=== PATIENT | female | born 1975 | race Caucasian/White ===

== ENCOUNTER 2018-02-19 22:23 | Emergency (ER) | payer OTHER ==
[2018-02-19 22:29] VITALS: BP 152/85; PULSE 89; TEMP 98; BMI 28.3
[2018-02-19] MEDS ORDERED: DIPHTH,PERTUSS(ACELL),TET 0.5 ML DISP.SYRIN IM ONE (22:36)
[2018-02-19] MEDS ORDERED: SILVER SULFADIAZINE 1% TOP CREAM 50 GM JAR TP ONE (22:37)
--- NOTE | 2018-02-19 22:39 | PDOC ---
History of Present Illness - General Chief Complaint: Burn Stated Complaint: BURN Time Seen by Provider: 02/19/18 22:36 History Source: Patient Exam Limitations: No Limitations - History of Present Illness Initial Comments: 02/19/18 22:37 42 yr female with burn to the hand on hot water while cooking at home tonight. no pmhx, pt has ice pack applied. 02/20/18 14:57 Past History - Past Medical History Allergies/Adverse Reactions: Allergies Allergy/AdvReac Type Severity Reaction Status Date / Time No Known Allergies Allergy Verified 02/19/18 22:29 Home Medications: Ambulatory Orders Naproxen [Naprosyn -] 500 mg PO BID 02/19/18 Asthma: Yes Cardiac Disorders: Yes (MURMUR) - Suicide/Smoking/Psychosocial Hx Smoking History: Never smoked Have you smoked in the past 12 months: No Information on smoking cessation initiated: No Hx Alcohol Use: No Drug/Substance Use Hx: No Substance Use Type: None *Physical Exam - Vital Signs Last Vital Signs Temp Pulse Resp BP Pulse Ox 98.0 F 89 16 152/85 100 02/19/18 22:28 02/19/18 22:28 02/19/18 22:28 02/19/18 22:28 02/19/18 22:28 - Physical Exam General Appearance: Yes: Nourished, Appropriately Dressed HEENT: positive: EOMI, ANA Extremity: positive: Normal Capillary Refill, Normal Range of Motion, Other ( left 5th,4th,3rd digits with superficial sepulveda to the distal phalynx, mild blistering noted no swelling, FROM ) Integumentary: positive: Normal Color, Dry, Warm Procedures - Laceration/Wound Repair Left Distal 5th digit Wound Explored: clean Irrigated w/ Saline: Yes Sterile Dressing Applied: Yes (silvadene applied to left 3,4,5th digits , sterile wrap placed ) Medical Decision Making - Medical Decision Making 02/19/18 22:49 second degree superficial sepulveda to the left 3,4,5th digits on boiling water at home while cooking tetanus updated silvadene cream and sterile dressing placed burn care instructions discussed *DC/Admit/Observation/Transfer Diagnosis at time of Disposition: Burn - Discharge Dispostion Disposition: HOME Condition at time of disposition: Good - Referrals Referrals: Domi Henderson MD [Primary Care Provider] - - Patient Instructions Printed Discharge Instructions: DI for Sepulveda Additional Instructions: cool water to the area of burn apply silvadene twice a day to the area and cover, repeat for at least 4-5 days until healed take ibuprofen 600-800mg every 8hrs for pain follow with your primary care doctor in 2-3 days for wound check - Post Discharge Activity
[2018-02-19] MEDS ORDERED: SILVER SULFADIAZINE 1% TOP CREAM 50 GM JAR TP STA (22:53)
[2018-02-20] MEDS ORDERED: SILVER SULFADIAZINE 1% TOP CREAM 400 GM JAR TP SCH (10:00)
== END 2018-02-19 22:58 | disposition home or self-care (01) ==
LOC: JERFT 22:23
PROC: 2W2KX4Z Dressing of Left Finger using Bandage (ICD-10-PCS; principal; 2018-02-19)
PROC: 3E0234Z Introduction of Serum, Toxoid and Vaccine into Muscle, Percutaneous Approach (ICD-10-PCS; 2018-02-19)
DX: T23.232A Burn of second degree of multiple left fingers (nail), not including thumb, initial encounter (principal); T31.0 Burns involving less than 10% of body surface; X12.XXXA Contact with other hot fluids, initial encounter; Y93.89 Activity, other specified; Y92.89 Other specified places as the place of occurrence of the external cause; Y99.8 Other external cause status
CPT/HCPCS: 90715; 99281-25

== ENCOUNTER 2019-02-25 23:16 | Emergency (ER) | payer OTHER ==
[2019-02-25 23:23] VITALS: BP 144/95; PULSE 118; TEMP 98.4; BMI 29.2
--- NOTE | 2019-02-25 23:57 | PDOC ---
Attending Attestation - Resident Resident Name: RafaelezequielElliott diorie - ED Attending Attestation I have performed the following: I have examined & evaluated the patient, The case was reviewed & discussed with the resident, I agree w/resident's findings & plan, Exceptions are as noted - HPI HPI: 02/26/19 00:08 Ms. Ledesma is a 43-year-old female with a history of hypertension who presents to the emergency department with a complaint of foreign body sensation in her chest. Patient states she was eating leftovers today at approximately 8 PM. She took a spoonful of food and did not realize while chewing that there was a bone in it. She realized that she had swallowed a bone when she felt it lodged somewhere in her throat. She attempted to eat as well as drink fluids in order to push it forward. This was unsuccessful. Pt waited to see if the sharp foreign body feeling would pass completely but it has not She notes feeling that discomfort in the center of her chest TOLERATING her saliva NO DROOLING NO CHOKING NO RESPIRATORY distress - Physicial Exam PE: 02/25/19 23:57 GENERAL: The patient is in no acute distress. ENT: Ears normal, nares patent, oropharynx clear without exudates. Moist mucous membranes. No foreign bodies visualized NECK: Normal range of motion, supple LUNGS: Breath sounds equal, clear to auscultation bilaterally. No wheezes, and no crackles. HEART:Regular rate and rhythm, normal S1 and S2 without murmur, rub or gallop. ABDOMEN: Soft, nontender, normoactive bowel sounds. EXTREMITIES: Normal range of motion, no edema. NEUROLOGICAL: Cranial nerves II through XII grossly intact. Normal speech. No focal neurological deficits. SKIN: Warm, Dry, normal turgor, no rashes or lesions noted. 02/26/19 00:30 - Medical Decision Making 02/26/19 00:31 43-year-old female with foreign body sensation which she attributes to a chicken bone Chest x-ray ordered We will contact GI once chest x-rays performed Currently patient is hemodynamically stable, demonstrates no respiratory distress We will reassess 02/28/19 09:49 CXR does not demonstrate a chicken bone Pt states she still has that foreign body sensation CT chest ordered Basic labs ordered Would call GI consult after CT Signed out to Dr. Dyer
--- NOTE | 2019-02-26 00:13 | PDOC ---
History of Present Illness - General Chief Complaint: Foreign Body (FB) Stated Complaint: Foreign Body (FB) Time Seen by Provider: 02/25/19 23:46 History Source: Patient Exam Limitations: No Limitations - History of Present Illness Initial Comments: 02/26/19 00:09 Patient is a 43 year old female with PMH of HTN and leaky aortic valve who presents to the ED after swallowing a chicken bone. Pt was eating chicken wings 4 hours ago when she felt the sensation that she swallowed a piece of a chicken bone. Pt had the sensation that something was stuck in her throat. After an hour , the foreign body sensation moved down to her midsternal chest. Pt complains of moderate discomfort and anxiety that the bone is stuck. She denies any dyspnea or respiratory distress, choking sensation, drooling, nausea or vomiting. She is sitting comfortably in bed and able to complete full sentences. PCP: Dr. Henderson Cardio: Dr. Hair Allergies: NKDA PMH: as per HPI Surgery: 2008, rhinoplasty 2010 Past History - Past Medical History Allergies/Adverse Reactions: Allergies Allergy/AdvReac Type Severity Reaction Status Date / Time No Known Allergies Allergy Verified 02/25/19 23:23 Home Medications: Ambulatory Orders Amlodipine Besylate [Norvasc -] 10 mg PO DAILY 02/26/19 Asthma: Yes Cardiac Disorders: Yes (MURMUR) COPD: No HTN: Yes - Psycho Social/Smoking Cessation Hx Smoking History: Never smoked Have you smoked in the past 12 months: No Hx Alcohol Use: No Drug/Substance Use Hx: No Substance Use Type: None Review of Systems - Review of Systems Able to Perform ROS?: Yes Constitutional: No: Chills, Diaphoresis, Fever, Loss of Appetite HEENTM: Yes: Throat Pain, Other (foreign body sensation in throat). No: Symptoms Reported, See HPI, Eye Pain, Blurred Vision, Tearing, Recent change in vision, Double Vision, Cataracts, Ear Pain, Ocular Prothesis, Ear Discharge, Nose Pain, Nose Congestion, Tinnitus, Nose Bleeding, Hearing Loss, Throat Swelling, Mouth Pain, Dental Problems, Difficulty Swallowing, Mouth Swelling Respiratory: No: Symptoms reported, See HPI, Cough, Orthopnea, Shortness of Breath, SOB with Exertion, SOB at Rest, Stridor, Wheezing, Productive cough, Hemoptysis, Other Cardiac (ROS): No: Symptoms Reported, See HPI, Chest Pain, Edema, Irregular Heart Rate, Lightheadedness, Palpitations, Syncope, Chest Tightness, Other ABD/GI: No: Symptoms Reported, See HPI, Abdominal Distended, Abd. Pain w/ defecation, Blood Streaked Bowels, Constipated, Diarrhea, Difficulty Swallowing , Nausea, Poor Appetite, Poor Fluid Intake, Rectal Bleeding, Vomiting, Indigestion, Abdominal cramping, Tarry Stools, Other Musculoskeletal: No: Symptoms Reported, See HPI, Back Pain, Gout, Joint Pain, Joint Swelling, Muscle Pain, Muscle Weakness, Neck Pain, Joint Stiffness, Other Neurological: No: Symptoms reported, See HPI, Headache, Numbness, Paresthesia, Pre-Existing Deficit, Seizure, Tingling, Tremors, Weakness, Unsteady Gait, Ataxia, Dizziness, Other *Physical Exam - Vital Signs Last Vital Signs Temp Pulse Resp BP Pulse Ox 98.4 F 118 H 18 144/95 98 02/25/19 23:20 02/25/19 23:20 02/25/19 23:20 02/25/19 23:20 02/25/19 23:20 - Physical Exam General Appearance: Yes: Nourished, Appropriately Dressed, Mild Distress HEENT: positive: Normal Voice, Symmetrical, Pharynx Normal Neck: positive: Trachea midline, Normal Thyroid, Supple Respiratory/Chest: positive: Lungs Clear, Normal Breath Sounds. negative: Respiratory Distress, Accessory Muscle Use, Crackles, Wheezing Cardiovascular: positive: Regular Rhythm, Regular Rate, S1, S2. negative: Edema , JVD, Murmur Vascular Pulses: Dorsalis-Pedis (R): 2+, Doralis-Pedis (L): 2+ Gastrointestinal/Abdominal: positive: Normal Bowel Sounds, Soft. negative: Tender Musculoskeletal: positive: Normal Inspection. negative: CVA Tenderness Extremity: positive: Normal Capillary Refill, Normal Inspection, Normal Range of Motion. negative: Swelling, Calf Tenderness ED Treatment Course - LABORATORY CBC & Chemistry Diagram: 02/26/19 01:57 02/26/19 01:57 - RADIOLOGY Radiology Studies Ordered: Category Date Time Status CHEST PA & LAT [RAD] Stat Radiology 02/26/19 00:07 Ordered Medical Decision Making - Medical Decision Making 02/26/19 00:15 >>CXR to view foreign body 02/26/19 04:07 CXR no foreign body found. CTAP to reassess >>CTAP no foreign body 2.3mm fissural nodule LLL Will d/c recommend f/u as outpatient Discharge - Discharge Information Problems reviewed: Yes Clinical Impression/Diagnosis: Foreign body Condition: Good Disposition: HOME - Admission No - Follow up/Referral Referrals: Domi Henderson MD [Primary Care Provider] - Sergei Doyle MD [Staff Physician] - - Patient Discharge Instructions Additional Instructions: You were evaluated in the ER for swallowing a chicken bone. A chest X-ray and a CAT scan did not reveal the bone. Please return to the ER if you experience any choking sensations, drooling, difficulty breathing, fevers or chills. There was an incidental finding of a fissural nodule in your lung, You should follow up with a parking enforcer for further evaluation. You should follow up with your primary care provider in one week. - Post Discharge Activity
[2019-02-26 02:19] LABS: BASO % 1.1 % (0-2.0); EOS % 1.1 % (0-4.5); HEMATOCRIT 38.8 % (32.4-45.2); LYMPH % 25.9 % (8-40); MCH 30.8 pg (25.7-33.7); MCHC 33.7 g/dl (32.0-36.0); MEAN CELL VOLUME 91.4 fl (80-96); MEAN PLT VOLUME 8.4 fl (7.5-11.1); MONO % 7.6 % (3.8-10.2); NEUT % 64.3 % (42.8-82.8); PLATELET COUNT 311 K/MM3 (134-434); RBC 4.24 M/mm3 (3.60-5.2); RDW 13.1 % (11.6-15.6); WHITE BLOOD COUNT 9.3 K/mm3 (4.0-10.0)
[2019-02-26 02:47] LABS: ALBUMIN 3.6 g/dl (3.4-5.0); BILIRUBIN,TOTAL 0.1 mg/dL (0.2-1); BLOOD UREA NITROGEN 9.9 mg/dL (7-18); CREATININE 0.9 mg/dL (0.55-1.3); POTASSIUM 3.8 mmol/L (3.5-5.1); TOT PROT 6.9 g/dl (6.4-8.2)
== END 2019-02-26 04:24 | disposition home or self-care (01) ==
LOC: JER 23:16
DX: T18.8XXA Foreign body in other parts of alimentary tract, initial encounter (principal); X58.XXXA Exposure to other specified factors, initial encounter; Y93.89 Activity, other specified; Y92.038 Other place in apartment as the place of occurrence of the external cause; Y99.8 Other external cause status; I10 Essential (primary) hypertension; Z86.79 Personal history of other diseases of the circulatory system
CPT/HCPCS: 36415; 71046-TC-FY; 71250-TC; 80053; 85025; 99282-25